=== PATIENT | female | born 1945 | race Caucasian/White ===

== ENCOUNTER 2017-05-29 15:18 | Emergency (ER) | payer MEDICARE, BC ==
[2017-05-29] MEDS ORDERED: OXYMETAZOLINE HCL 150 SPRAY BTL ONE (15:33)
[2017-05-29] MEDS ORDERED: OXYMETAZOLINE HCL 150 SPRAY BTL NS ONE (15:36)
--- OUTSIDE RECORDS SUMMARY | 2017-05-29 15:42 | XMS REPORT | Clinical Summary ---
:1945 Author Organization [facility] [place] [address] Care Team Providers Name Role Phone Unavailable Primary Care Provider Unavailable Source Comments This disclosure is being made pursuant to the AWAK program and maynot contain all information available regarding this patient.[facility] Allergies Not on File Current Medications Be aware that medications may not be up to date as of this document. Alwaysverify current medications with the patient. Not on file Active Problems Not on file Social History Tobacco Use Types Packs/Day Years Used Date Never Assessed Sex Assigned at Date Recorded Not on file Last Filed Vital Signs Not on file Plan of Treatment Health Maintenance Due Date Last Done Comments Tetanus/Pertussis (1 - Tdap) 1963 Colonoscopy 1994 Mammogram 1994 Well Adult Visit 1994 Zoster Vaccine 60+ 2004 Bone Density 2009 Pneumococcal Low/Medium Risk 65+ (1 of 2 - PCV13) 2009 INFLUENZA IMMUNIZATION (#1) 2017 Results Not on filefrom Last 3 Months
--- NOTE | 2017-05-29 16:31 | ERNOTE ---
ENT HPI Date of Service: 05/29/17 Presenting Symptoms: nosebleed Time Seen by Provider: 05/29/17 15:29 Source: patient Exam Limitations: no limitations - Immun/Allergies/Home Medications Immunizations: IMMUNIZATION HX Immunizations Up to Date Yes Allergies/Adverse Reactions: Allergies Allergy/AdvReac Type Severity Reaction Status Date / Time No Known Allergies Allergy Unverified 11/06/13 12:56 Home Medications: HOME MEDICATIONS Aspirin [Aspirin Enteric Coated] 81 mg PO DAILY 11/06/13 [Last Taken Unknown] Atorvastatin Calcium [Lipitor] 20 mg PO DAILY 11/06/13 [Last Taken Unknown] Fexofenadine/Pseudoephedrine [Elin-D 24 Hour Tablet] 1 each PO DAILY [Last Taken Unknown] Gabapentin [Neurontin] 600 mg PO DAILY 11/06/13 [Last Taken Unknown] Candesartan Cilexetil [Atacand] 8 mg PO DAILY 12/04/13 [Last Taken Unknown] Omeprazole 20 mg PO DAILY 05/29/17 [Last Taken Unknown] - History of Present Illness Narrative: Patient presents to the ED for a nose bleed. This nose bleed has been only out of the left nare. She is on a baby ASA, no other blood thinners. No other easy bruising or bleeding. no trauma. No fever. No recent URI. No vomiting. No GARZA or vision changes. Severity: Present: mild ENT Location: Present: nose Prearrival Treatment: Present: no prearrival treatment Modifying Factors - Improves: Reports: other - pressure Modifying Factors - Worsens: Reports: nothing Associated Symptoms - ENT: Denies: fever, cough, sore throat Prior Treament: Denies: recently seen Review of Systems - Review of Systems Constitutional: Absent: fever EYE: Present: no symptoms reported ENT: Present: See HPI Respiratory: Absent: shortness of breath Cardiology: Absent: chest pain Skin: Present: no symptoms reported - Patient's Past Medical History Patient History - Medical: No pertinent hx Patient History - Cardiac/Respiratory: Hypertension, Hyperlipidemia Patient History - Cancer: No Hx of Cancer - Social History Smoking Status: Never smoker Have you smoked in the past 12 months: No - Immunizations Immunizations Up to Date: Yes Physical Exam - Physical Exam General Appearance: Present: alert, no apparent distress Head Exam: Present: normal inspection, no evidence of injury Eye Exam: Normal inspection: bilateral, PERRL: bilateral Ears, Nose, Throat: Present: other - Apparent area of bleeding left anterior septum. No evidene of posterior nosebleed. No FB. Neck: Present: normal inspection Respiratory: Present: no respiratory distress, lungs clear Cardiovascular/Chest: Present: regular rate, rhythm Neurological Exam: Present: alert, no motor/sensory deficits. Absent: motor weakness Skin Exam: Present: normal color, warm/dry ED Progress - Vital Signs Patient's Vital Signs:: I have reviewed the patient's vital signs. Vital Signs: Vital Signs 05/29/17 15:20 Temperature 36.6 C Pulse Rate 82 Respiratory 14 Rate Blood Pressure 167/78 O2 Sat by Pulse 99 Oximetry - Progress/Reassessment Chief Complaint: Nose Bleed Progress Note-Subjective: 05/29/17 16:30 Bleeding stopped with Cautery. no bleeding at d/c. Appt made with ENT for tomorrow. Pt agreeable. I discussed warnign signs and reasons to return as well as the need for close f/u. Procedures Complications: Pt trupti procedure well Comments: Epistaxis. Risks benefits discussed. Verbal consent. Afrin given. Nasal cavity clot evacuated. Apparent area anterior left that appears to be site of bleeding. Cautery with Silver nitrate applied and pressure. Bleeding resolved. no complications. Tolerated well. Departure Clinical Impression: Epistaxis - Departure Disposition: Home self-care Condition: Stable Instructions: Nosebleed, [id number] Additional Instructions: You have an appointment with ENT tomorrow at 1pm. Please be there at 1 pm for paperwork in [place]. Return here for bleeding or if your condition worsens or changes in any way. Referrals: Jaylon Davis MD [Primary Care Provider] -
[2017-05-29 17:00] VITALS: BP 149/61
== END 2017-05-29 16:38 | disposition home or self-care (01) ==
LOC: ER 15:18
PROC: 0W3Q7ZZ Control Bleeding in Respiratory Tract, Via Natural or Artificial Opening (ICD-10-PCS; principal; 2017-05-29)
DX: R04.0 Epistaxis (principal); I10 Essential (primary) hypertension; E78.5 Hyperlipidemia, unspecified